=== PATIENT | female | born 1960 ===

== ENCOUNTER 2018-08-17 11:24 | Emergency (ER) | payer OTHER ==
[2018-08-17 11:33] VITALS: BMI 24.7
[2018-08-17 12:24] LABS: BASO # 0.1 K/uL (0.0-0.2); BASO % 0.6 % (0.0-2.0); EOS % 0.1 % (0.0-4.0); HEMOGLOBIN 12.9 g/dL (11.0-16.0); LYMPH # 1.1 K/uL (1.0-4.3); LYMPH % 10.1 % (20.0-40.0); MEAN CELL VOLUME 89.6 fL (81.0-99.0); MEAN CORPUSCULAR HEMOGLOBIN 29.9 pg (27.0-31.0); MEAN CORPUSCULAR HGB CONC 33.3 g/dL (33.0-37.0); MEAN PLATELET VOLUME 7.9 fL (7.2-11.7); MONO # 0.3 K/uL (0.0-0.8); MONO % 2.7 % (0.0-10.0); NEUT # 9.2 K/uL (1.8-7.0); NEUT % 86.5 % (50.0-75.0); RBC 4.31 Mil/uL (3.80-5.20); RED CELL DISTRIBUTION WIDTH 13.3 % (11.5-14.5); WHITE BLOOD COUNT 10.7 K/uL (4.8-10.8)
[2018-08-17 12:31] LABS: INR 1.1; PROTHROMBIN TIME 11.9 SECONDS (9.7-12.2)
[2018-08-17 12:35] LABS: ALB/GLOB RATIO 1.4 (1.0-2.1); ALBUMIN 4.5 g/dL (3.5-5.0); ALT/SGPT 27 U/L (9-52); AST/SGOT 16 U/L (14-36); BLOOD UREA NITROGEN 23 mg/dL (7-17); CALCIUM 10.1 mg/dl (8.6-10.4); GFR NON-AFRICAN AMERICAN 51
[2018-08-17] MEDS: Sodium Chloride 0.9% 1,000 ML IV ONE (12:47)
--- NOTE | 2018-08-17 13:08 | C.PDOC ---
History Of Present Illness 58-year-old female, presents to the emergency department with complaints of three episodes of epistaxis x3 days. Pt states most recent episode was overnight, she notes large amount of bleeding clots, that she was coughing up. Patient denies trauma. She is also complaining of pressure in right chest. She denies any shortness of breath, fever, headache, dizziness, numbness/weakness, slurred speech, facial droop, extremity weakness or any other associated symptoms. No other complaints at this time. Time Seen by Provider: 08/17/18 11:58 Chief Complaint (Nursing): ENT Problem History Per: Patient History/Exam Limitations: no limitations Onset/Duration Of Symptoms: Days Past Medical History Reviewed: Historical Data, Nursing Documentation, Vital Signs Vital Signs: Last Vital Signs Temp 99.2 F 08/17/18 12:28 Pulse 116 H 08/17/18 12:28 Resp 16 08/17/18 12:28 BP 131/73 08/17/18 12:28 Pulse Ox 96 08/17/18 12:28 Surgical History: Cholecystectomy Family History: States: No Known Family Hx - Social History Hx Alcohol Use: No Hx Substance Use: No - Immunization History Hx Tetanus Toxoid Vaccination: No Hx Influenza Vaccination: No Hx Pneumococcal Vaccination: No Review Of Systems Constitutional: Negative for: Fever, Chills ENT: Positive for: Other (nose bleed) Respiratory: Negative for: Shortness of Breath Gastrointestinal: Negative for: Nausea, Vomiting Physical Exam - Physical Exam Appears: Non-toxic, No Acute Distress Skin: Warm, Dry, No Rash Head: Atraumatic, Normacephalic Eye(s): bilateral: Normal Inspection, PERRL, EOMI Nose: Other (dried blood left nare) Oral Mucosa: Moist Lips: Normal Appearing Throat: No Erythema, No Exudate, No Drooling, No Mass, Other (no blood visualized in posterior oropharynx) Neck: Normal ROM Cardiovascular: Rhythm Regular, No Murmur Respiratory: Normal Breath Sounds, No Accessory Muscle Use Gastrointestinal/Abdominal: Soft, No Tenderness Extremity: Normal ROM, No Deformity Neurological/Psych: Oriented x3, Normal Speech ED Course And Treatment - Laboratory Results Result Diagrams: 08/17/18 12:20 08/17/18 12:20 ECG: Interpreted By Me, Viewed By Me ECG Rhythm: Sinus Rhythm ECG Interpretation: No Acute Changes Rate From EC O2 Sat by Pulse Oximetry: 96 Pulse Ox Interpretation: Normal (RA) Progress Note: Bloodwork, EKG and IVF ordered. Disposition Counseled Patient/Family Regarding: Studies Performed, Diagnosis, Need For Followup - Disposition Referrals: Asa Childs MD [Staff Provider] - [facility] [Outside] Disposition: HOME/ ROUTINE Disposition Time: 13:30 Condition: STABLE Additional Instructions: FOLLOW UP WITH EAR NOSE THROAT SPECIALIST WITHIN 1 WEEK RETURN TO EMERGENCY ROOM IF SYMPTOMS RETURN/WORSEN SIGUE CON EL ESPECIALISTA EN [place] DE OTRA NARIZ DENTRO DE 1 SEMANA VUELVA A LA BRANDEE DE EMERGENCIA SI LOS SNTOMAS DEVOLVER / ENVIARSE Instructions: Nosebleeds (DC) Forms: [employer] (Frisian) Print Language: ICELANDIC - Clinical Impression Clinical Impression: Epistaxis - Scribe Statement The provider has reviewed the documentation as recorded by the Scribe (Gilberto Noriega) Provider Attestation: All medical record entries made by the Scribe were at my direction and personally dictated by me. I have reviewed the chart and agree that the record accurately reflects my personal performance of the history, physical exam, medical decision making, and the department course for this patient. I have also personally directed, reviewed, and agree with the discharge instructions and disposition.
[2018-08-17] MEDS: Phenylephrine 1% Nasal Spray (15 ml) NAS STA (13:42)
[2018-08-17] MEDS ORDERED: Phenylephrine 1% Nasal Spray (15 ml) ONE (13:47)
[2018-08-17 13:54] VITALS: BP 126/70; PULSE 94; RESP 18; TEMP 98.5; O2SAT 97
--- NOTE | 2018-08-18 23:12 | CARD ---
APPROVED REPORT Date of service: 08/17/2018 EKG Measurement Heart [id number] <Conclusion> Sinus tachycardia Possible Left atrial enlargement Borderline ECG
== END 2018-08-17 13:54 | disposition home or self-care (01) ==
LOC: C.ER 11:24
DX: R04.0 Epistaxis (principal)
CPT/HCPCS: 80053; 84484; 85025; 85610; 85730; 86850; 86900; 93005; 96360; 99283; J7030